=== PATIENT | female | born 1940 | race Caucasian/White ===

== ENCOUNTER → 2016-11-25 | Outpatient (CLI) | payer MEDICARE | END | disposition home or self-care (01) | LOC: CDC 11:33 | DX: Z01.810 Encounter for preprocedural cardiovascular examination (principal) | CPT/HCPCS: 93000 ==

== ENCOUNTER 2016-12-09 23:08 | Inpatient (IN) | payer OTHER, MEDICARE ==
[~2016-12-09] VITALS: Ht 162.6 cm; Wt 63.2 kg
[~2016-12-09 23:08] MED LIST: ALDACTONE50 MG PO; LITE COAT ASPI325 M1 PO; PRILOSEC20 MG PO; TUMS500 MG PO; ZOCOR40 MG PO
[2016-12-10 09:38] VITALS: BP 152/70
[2016-12-10 22:00] VITALS: BP 142/63
[2016-12-11 00:24] VITALS: BP 166/72
[2016-12-11 03:56] VITALS: BP 109/53
[2016-12-11 07:22] VITALS: BP 133/60
[2016-12-11] MEDS ORDERED: HYDROCODON-ACE1 EAC7 PO (08:47)
== END 2016-12-11 10:50 | disposition home or self-care (01) | DRG 39 ==
LOC: CANRESERV 23:08 → ENRESERV 23:08 → 2SOUTH 12-10 09:06 → 4EAST 12-10 09:08 → 2SOUTH 12-10 14:37 → ENRESERV 12-10 18:18 → 4EAST 12-10 22:01 → ENPENDDIS 12-11 → 4EAST 12-11 10:50
DX: I65.21 Occlusion and stenosis of right carotid artery (principal); E11.9 Type 2 diabetes mellitus without complications; E78.00 Pure hypercholesterolemia, unspecified; K21.9 Gastro-esophageal reflux disease without esophagitis; Z83.3 Family history of diabetes mellitus; Z98.82 Breast implant status; Z87.891 Personal history of nicotine dependence
CPT/HCPCS: 93005; C1768; J0131; J0690; J1170; J1644; J1650; J2405; J2720; J2795; J3010; J7120